=== PATIENT | male | born 1960 | race Two or more races ===

== ENCOUNTER 2017-11-21 08:00 | Day surgery (SDC) | payer OTHER, BC ==
[~2017-11-21 08:00] MED LIST: EPINEPHrine 1 MG/ML 30 ML MDV IV ONE; Lactated Ringers 1,000 ML IV SCH; Lidocaine 1%/Sod Bicarbonate in NS 8.4% 1 ML Syringe IDERM PRN; Sodium Chloride 0.9% 10 ML Syringe FLUSH PRN
[2017-11-21] MEDS ORDERED: Bupivacaine 0.25% 30 ML SDV ONE (08:30)
[2017-11-21] MEDS ORDERED: EPINEPHrine 1 MG/ML SDV ONE (08:43)
[2017-11-21] MEDS ORDERED: Ropivacaine 0.5% 5 MG/ML 30 ML SDV ONE (08:43)
[2017-11-21] MEDS ORDERED: Lidocaine 1% 4 ML ONE ×2 (08:43→09:05)
[2017-11-21] MEDS ORDERED: Propofol 200 MG/20 ML SDV ONE (09:04)
[2017-11-21] MEDS ORDERED: Ketamine 500 mg/10 ML MDV ONE (09:04)
[2017-11-21] MEDS ORDERED: Ondansetron 4 MG/2 ML SDV ONE (09:04)
[2017-11-21] MEDS ORDERED: fentaNYL 100 MCG/2 ML SDV ONE ×2 (09:04→10:38)
[2017-11-21] MEDS ORDERED: Lactated Ringers 1,000 ML ONE (09:04)
[2017-11-21] MEDS ORDERED: ceFAZolin 1 GM Vial ONE (09:04)
[2017-11-21] MEDS ORDERED: Midazolam 1 MG/ML 2 ML SDV ONE (09:05)
--- NOTE | 2017-11-21 09:15 | PCM.PREANE ---
Preanesthetic Assessment - Anesthesia/Transfusion/Family Hx Anesthesia History: Prior Anesthesia Without Reaction Family History of Anesthesia Reaction: No Transfusion History: No Prior Transfusion(s) Intubation History: Unknown - Review of Systems General: No Symptoms Pulmonary: No Symptoms (KUSH with CPAP at night.) Cardiovascular: No Symptoms (History of MS 14 years ago in [place]: questionable per MD/stable echocardiogram noted), Dyspnea on Exertion ("due to being out of shape") Gastrointestinal: No Symptoms Neurological: No Symptoms (chronic back pain) Other: Reports: Anxiety - Physical Assessment NPO Status Date: 11/20/17 NPO Status Time: 22:00 Pulse: 67 O2 Sat by Pulse Oximetry: 94 Respiratory Rate: 16 Blood Pressure: 147/89 Temperature: 36.5 C Vital Signs: Last Vital Signs Temp 36.5 C 11/21/17 08:15 Pulse 67 11/21/17 08:15 Resp 16 11/21/17 08:15 BP 147/89 H 11/21/17 08:15 Pulse Ox 94 L 11/21/17 08:15 Height: 1.63 m Weight: 107.048 kg ASA Class: 3 Mental Status: Alert & Oriented x3 Airway Class: Mallampati = 2 Dentition: Reports: Normal Dentition, Cochran(s), Caries Thyro-Mental Finger Breadths: 3 Mouth Opening Finger Breadths: 3 ROM/Head Extension: Full Lungs: Clear to Auscultation, Normal Respiratory Effort Cardiovascular: Regular Rate, Regular Rhythm, No Murmurs - Lab Values: Laboratory Last Values MRSA (PCR) Negative 11/13/17 13:20 All lab values reviewed and noted and within acceptable ranges to proceed with scheduled procedure. - Imaging/EKG Impressions: EKG: SR rate=64 CXR: negative Echocardiogram: EF=70-75%, Mild aortic regurgitation - Allergies Allergies/Adverse Reactions: Allergies Allergy/AdvReac Type Severity Reaction Status Date / Time No Known Allergies Allergy Verified 11/20/17 16:12 - Anesthesia Plan Pre-Op Medication Ordered: None - Acknowledgements Anesthesia Type Planned: General Anesthesia (Left interscalene block under US guidance for post operative pain control requested by Dr. Riggins.) Pt an Appropriate Candidate for the Planned Anesthesia: Yes Alternatives and Risks of Anesthesia Discussed w Pt/Guardian: Yes Pt/Guardian Understands and Agrees with Anesthesia Plan: Yes PreAnesthesia Questionnaire HEENT History: Reports: Impaired Vision Cardiovascular History: Reports: High Cholesterol, Hypertension Respiratory History: Reports: Sleep Apnea Gastrointestinal History: Reports: GERD Genitourinary History: Reports: None ELECTRICIAN'S ASSISTANT History: Reports: None Musculoskeletal History: Reports: Back Pain, Chronic Other Musculoskeletal History: LEFT ELBOW SURGERY INVOLVING NERVE, carpal tunnel syndrome, left rotator cuff tear Neurological History: Reports: None Psychiatric History: Reports: None Endocrine/Metabolic History: Reports: Obesity/BMI 30+ Hematologic History: Reports: None Immunologic History: Reports: None Oncologic (Cancer) History: Reports: None Dermatologic History: Reports: None - Past Surgical History Head Surgeries/Procedures: Reports: None HEENT Surgical History: Reports: Eye Surgery Cardiovascular Surgical History: Reports: None Respiratory Surgical History: Reports: None GI Surgical History: Reports: Cholecystectomy, Colonoscopy, EGD Female Surgical History: Reports: None Male Surgical History: Reports: None Endocrine Surgical History: Reports: None Neurological Surgical History: Reports: None Musculoskeletal Surgical History: Reports: Shoulder Surgery Oncologic Surgical History: Reports: None Dermatological Surgical History: Reports: None - SUBSTANCE USE Smoking Status *Q: Never Smoker Recreational Drug Use History: No - HOME MEDS Home Medications: Home Meds traMADol [Ultram] 50 mg PO Q6HR PRN 01/16/15 [History] ALPRAZolam [Xanax] 1 mg PO ASDIRECTED PRN 03/25/16 [History] Methocarbamol [Robaxin-750] 750 mg PO BID 03/25/16 [History] Acetaminophen [Tylenol Extra Strength] 1,000 mg PO ASDIRECTED PRN 11/21/17 [ History] Acetaminophen/HYDROcodone [[place] 325-5 MG] 1 - 2 tab PO Q6H PRN #40 tablet 11/21 [Rx] - CURRENT (IN HOUSE) MEDS Current Meds: Current Medications Epinephrine HCl (Adrenalin) 3 mg IV ONETIME ONE Stop: 11/21/17 10:01 Lactated Ringer's (Ringers, Lactated) 1,000 mls @ 125 mls/hr IV ASDIRECTED PUNEET Stop: 11/21/17 23:00 Lidocaine/Sodium Bicarbonate (Buffered Lidocaine 1% In Ns 8.4%) 0.25 ml IDERM ONETIME PRN PRN Reason: Prior to IV Start Stop: 11/21/17 18:00 Sodium Chloride (Saline Flush) 10 ml FLUSH ASDIRECTED PRN PRN Reason: Keep Vein Open Stop: 11/21/17 18:00 Discontinued Medications Bupivacaine HCl (Marcaine 0.25%) Confirm Administered Dose 30 ml .ROUTE .STK- MED ONE Stop: 11/21/17 08:31 Cefazolin Sodium (Ancef) Confirm Administered Dose 2 gm .ROUTE .STK-MED ONE Stop: 11/21/17 09:05 Epinephrine HCl (Adrenalin) 3 mg IV ONETIME ONE Stop: 11/20/17 10:01 Epinephrine HCl (Adrenalin) Confirm Administered Dose 1 mg .ROUTE .STK-MED ONE Stop: 11/21/17 08:44 Fentanyl (Sublimaze) Confirm Administered Dose 100 mcg .ROUTE .STK-MED ONE Stop: 11/21/17 09:05 Lidocaine HCl (Xylocaine-Mpf 1%) Confirm Administered Dose 4 mls @ as directed .ROUTE .STK-MED ONE Stop: 11/21/17 08:44 Lactated Ringer's (Ringers, Lactated) Confirm Administered Dose 1,000 mls @ as directed .ROUTE .STK-MED ONE Stop: 11/21/17 09:05 Lidocaine HCl (Xylocaine-Mpf 1%) Confirm Administered Dose 4 mls @ as directed .ROUTE .STK-MED ONE Stop: 11/21/17 09:06 Ketamine HCl (Ketalar) Confirm Administered Dose 500 mg .ROUTE .STK-MED ONE Stop: 11/21/17 09:05 Midazolam HCl (Versed 1 Mg/Ml) Confirm Administered Dose 2 mg .ROUTE .STK-MED ONE Stop: 11/21/17 09:06 Ondansetron HCl (Zofran) Confirm Administered Dose 4 mg .ROUTE .STK-MED ONE Stop: 11/21/17 09:05 Propofol (Diprivan 20 Ml) Confirm Administered Dose 600 mg .ROUTE .STK-MED ONE Stop: 11/21/17 09:05 Ropivacaine (Naropin 0.5%) Confirm Administered Dose 30 ml .ROUTE .STK-MED ONE Stop: 11/21/17 08:44
[2017-11-21] MEDS ORDERED: Succinylcholine/Normal Saline 100 MG/5 ML Syringe ONE (09:44)
[2017-11-21] MEDS ORDERED: Rocuronium 50 MG/5 ML Vial ONE (09:44)
[2017-11-21] MEDS ORDERED: EPINEPHrine 1 MG/ML 30 ML MDV IV ONE (10:00)
[2017-11-21] MEDS ORDERED: Dexamethasone 4 MG/ML SDV ONE (10:31)
[2017-11-21] MEDS ORDERED: Ketorolac 30 MG/ML SDV ONE (11:15)
[2017-11-21] MEDS ORDERED: diphenhydrAMINE 50 MG/ML SDV IVPUSH PRN (11:18)
[2017-11-21] MEDS ORDERED: Ondansetron 4 MG/2 ML SDV IVPUSH PRN (11:18)
[2017-11-21] MEDS ORDERED: fentaNYL 100 MCG/2 ML SDV IVPUSH PRN (11:18)
[2017-11-21] MEDS ORDERED: Meperidine PF 50 MG/ML Syringe IVPUSH PRN (11:18)
--- NOTE | 2017-11-21 11:56 | PCM.POSTAN ---
POST ANESTHESIA ASSESSMENT - MENTAL STATUS Mental Status: Alert, Confused - VITAL SIGNS Pulse Rate: 80 SaO2: 92 Resp Rate: 26 Blood Pressure: 149/88 Temperature: 36.4 C - RESPIRATORY Respiratory Status: Respiratory Rate WNL, Airway Patent, O2 Saturation Stable, Supplemental Oxygen - CARDIOVASCULAR CV Status: Pulse Rate WNL, Blood Pressure Stable - GASTROINTESTINAL GI Status: No Symptoms - PAIN Pain Score: 0 - POST OP HYDRATION Hydration Status: Adequate & Stable
--- NOTE | 2017-11-21 12:13 | PCM.SN ---
- Free Text/Narrative Note: Anesthesia Note: (Interscalene block note) Date: 10/21/2017 Time Out: 939 Start: 939 Stop: 958 Surgical Procedure: Left Shoulder Video Arthroscopy with Rotator Cuff Repair Diagnosis: Left Shoulder Rotator Cuff Tear Current Procedure: Left interscalene block under US guidance for postoperative pain control requested by Dr. Riggins. Patient chart reviewed, risk/benefits discussed with patient, consent obtained. Patient positioned supine, monitors/alarms on, oxygen placed via nasal cannula at 2 LPM. IV sedation administered: Versed 2mg IV @ 0940 Fentanyl 50 mcg IV @ 0940 Fentanyl 50 mcg IV @ 0944 Left shoulder prepped with chloraprep x1. Sterile drapes placed with aseptic technique. Under US guidance (sterile US sleeve) left subclavian artery visualized along with the left brachial plexus. Plexus followed cephalad up to C6 cricoid level, and area localized with 2mls of 1% lidocaine. 22gauge 2 inch stimiplex needle inserted under US and guided to brachial plexus C5-C6 trunks with 0.44mV with stimulation of biceps noted. Stimulation abolished at 0.2mVs. 1ml of Normal Saline injected with loss of stimulation up to 0.7mA to confirm needle not placed intraneurally. Incremental injection of 5mls with negative aspiration prior to each injection of 0.5% ropivacaine with 1:200,000 epinephrine. Total volume=30mls. See nurses notes for vital signs. Tolerated procedure well. No complications noted.
--- NOTE | 2017-11-21 13:48 | PCM48HPAN ---
Post Anesthesia Note - EVALUATION WITHIN 48HRS OF ANESTHETIC Vital Signs in Normal Range: Yes Patient Participated in Evaluation: Yes Respiratory Function Stable: Yes Airway Patent: Yes Cardiovascular Function Stable: Yes Hydration Status Stable: Yes Pain Control Satisfactory: Yes Nausea and Vomiting Control Satisfactory: Yes Mental Status Recovered: Yes
[2017-11-21 15:21] VITALS: BP 143/77
--- NOTE | 2017-11-23 08:51 | PCM.OPNOTE ---
- General Post-Op/Procedure Note Date of Surgery/Procedure: 11/21/17 Operative Procedure(s): left shoulder video arthroscopy with rotator cuff repair , subacromial decompression and limited debridement Pre Op Diagnosis: left shoulder rotator cuff tear with impingement Post-Op Diagnosis: Same Anesthesia Technique: General ET Tube, Regional Block Primary Surgeon: Jorje Riggins Anesthesia Provider: Millie Walden Embroidery Assistant: Dunia Mike EBL in mLs: 5 Complications: None Condition: Good
--- NOTE | 2017-11-23 09:58 | OR ---
DATE OF OPERATION: 11/21/2017 SURGEON: Jorje Riggins MD OPERATION PERFORMED: Left shoulder video arthroscopy with rotator cuff repair, subacromial decompression, and limited debridement. PREOPERATIVE DIAGNOSIS: Left shoulder rotator cuff tear with impingement. POSTOPERATIVE DIAGNOSIS: Left shoulder rotator cuff tear with impingement. ANESTHESIA: General endotracheal intubation with regional interscalene block. ANESTHESIA PROVIDER: Marine Baker. ASSISTANTS: Dunia Mike PA-C. ESTIMATED BLOOD LOSS: Less than 5 mL. COMPLICATIONS: None. CONDITION: Stable. DESCRIPTION OF PROCEDURE: The patient was identified in the preop holding area, where proper site was marked and identified by the surgeon. The patient was taken back to the operating theater where after adequate anesthesia, the patient was placed in a lazy right lateral decubitus position. A wedge was placed posteriorly. All bony prominences were well padded. The patient was secured to the table. Left upper extremity was then sterilely prepped and draped in the usual sterile fashion. OR time-out was performed. The patient received 2 g IV Ancef. The left upper extremity then had 15 pounds of traction applied. Standard posterior incision was made. Scope trocar was introduced through the glenohumeral joint. At this time, anterior portal was also created with the use of a spinal needle from an outside in technique. At this time, cursory examination showed a significant full-thickness tear of the anterior portion of the supraspinatus; subscapularis tendon was intact. Biceps tendon was intact. There was minor amount of anterior labral fraying. There was no chondromalacia noted and no loose foreign bodies in the axillary recess. At this time, a limited debridement was done of the synovium and attention was turned to the subacromial space. The scope trocar was then placed in the subacromial space and there was noted to be a full-thickness tear of small portion of the anterior portion of the supraspinatus. At this time, a limited debridement was done on the subacromial space. There was noted to be significant fraying of the CA ligament as well. A lateral portal was then created with the use of a spinal needle. A good bony bleeding bed was then created at the old insertional region of the anterior tear for fixation of the rotator cuff. At this time, with the use of a spinal needle, a punch was used for a medial row 4.75 mm Arthrex SwiveLock anchor. Two limbs of FiberTape as well as 2 limbs of FiberWire were then passed through the tear. The 2 limbs of FiberWire were then tied for a medial row repair and all 4 limbs were brought out laterally and a punch was used for another 4.75 mm Arthrex SwiveLock anchor laterally. All 4 limbs of suture were brought out laterally and then were tightened and the SwiveLock was then placed. It was noted to be an adequate watertight repair with catholic of the footprint. At this time, cautery was used to take down part of the CA ligament and acromioplasty as well as subacromial decompression was then completed. At this time, it was brought back to a nice smooth border. Excess saline was drained from the joint, 3-0 nylon simple suture was used for closure of the skin. A sterile soft dressing as well as a pillow sling was applied. The patient tolerated the procedure well, was sent to PACU in stable condition. CHUCHO /[id number]
== END 2017-11-21 14:10 | disposition home or self-care (01) ==
LOC: JD.SDS 08:00
PROVIDERS: ATTEND Orthopaedic Surgery
DX: M75.122 Complete rotator cuff tear or rupture of left shoulder, not specified as traumatic (principal); M75.42 Impingement syndrome of left shoulder; G89.29 Other chronic pain; M54.9 Dorsalgia, unspecified; G47.33 Obstructive sleep apnea (adult) (pediatric); Z99.89 Dependence on other enabling machines and devices; E78.00 Pure hypercholesterolemia, unspecified; E66.9 Obesity, unspecified; Z68.41 Body mass index [BMI] 40.0-44.9, adult; Z79.899 Other long term (current) drug therapy
CPT/HCPCS: 87641; J0171; J0330; J0690; J1100; J1885; J2001; J2250; J2405; J2704; J2795; J3010; J3490; J7120

== ENCOUNTER 2018-09-18 06:37 | Day surgery (SDC) | payer OTHER ==
--- NOTE | 2018-09-17 10:04 | PCM.PREANE ---
Preanesthetic Assessment - Anesthesia/Transfusion/Family Hx Anesthesia History: Prior Anesthesia Without Reaction Family History of Anesthesia Reaction: No Transfusion History: No Prior Transfusion(s) (Patient refuses to receive any blood transfusions.) Intubation History: Unknown - Review of Systems General: No Symptoms Pulmonary: No Symptoms (KUSH with CPAP noted at night), Shortness of Breath Cardiovascular: No Symptoms (History of HTN, History of potential VT 15 years ago in [place], Dr. Carroll questions the validity of this statement.) Gastrointestinal: No Symptoms (History of GERD) Neurological: No Symptoms (Chronic lower back pain noted) Other: Reports: Liver Problems (elevated liver enzymes), Sinus Problem ( seasonal allergies-patient sneezes a lot.), Anxiety - Physical Assessment NPO Status Date: 09/17/18 NPO Status Time: 21:00 Pulse: 63 O2 Sat by Pulse Oximetry: 95 Respiratory Rate: 16 Blood Pressure: 143/66 Temperature: 36.4 C Height: 1.63 m Weight: 107 kg ASA Class: 3 Mental Status: Alert & Oriented x3 Airway Class: Mallampati = 2 Dentition: Reports: Normal Dentition, Missing Tooth/Teeth, Caries Thyro-Mental Finger Breadths: 3 Mouth Opening Finger Breadths: 3 ROM/Head Extension: Full Lungs: Clear to Auscultation, Normal Respiratory Effort Cardiovascular: Regular Rate, Regular Rhythm, No Murmurs - Lab Values: Laboratory Last Values MRSA (PCR) Negative 09/10/18 12:00 All labs reviewed and noted and within acceptable ranges to proceed with scheduled procedure. Elevated liver enzymes noted. - Imaging/EKG Impressions: EKG: SR rate =64 Echocardiogram: EF= 70-75%, mild aortic regurgitation - Allergies Allergies/Adverse Reactions: Allergies Allergy/AdvReac Type Severity Reaction Status Date / Time No Known Allergies Allergy Verified 09/17/18 13:19 - Anesthesia Plan Pre-Op Medication Ordered: None - Acknowledgements Anesthesia Type Planned: General Anesthesia (Left ISB under US guidance for post operative pain control requested by Dr. Riggins.) Pt an Appropriate Candidate for the Planned Anesthesia: Yes Alternatives and Risks of Anesthesia Discussed w Pt/Guardian: Yes Pt/Guardian Understands and Agrees with Anesthesia Plan: Yes PreAnesthesia Questionnaire HEENT History: Reports: Impaired Vision Cardiovascular History: Reports: High Cholesterol, Hypertension Respiratory History: Reports: Sleep Apnea Gastrointestinal History: Reports: GERD Genitourinary History: Reports: None PERFORATOR History: Reports: None Musculoskeletal History: Reports: Back Pain, Chronic Other Musculoskeletal History: LEFT ELBOW SURGERY INVOLVING NERVE, carpal tunnel syndrome, left rotator cuff tear Neurological History: Reports: None Psychiatric History: Reports: None Endocrine/Metabolic History: Reports: Obesity/BMI 30+ Hematologic History: Reports: None Immunologic History: Reports: None Oncologic (Cancer) History: Reports: None Dermatologic History: Reports: None - Past Surgical History Head Surgeries/Procedures: Reports: None HEENT Surgical History: Reports: Eye Surgery Cardiovascular Surgical History: Reports: None Respiratory Surgical History: Reports: None GI Surgical History: Reports: Cholecystectomy, Colonoscopy, EGD Female Surgical History: Reports: None Male Surgical History: Reports: None Endocrine Surgical History: Reports: None Neurological Surgical History: Reports: None Musculoskeletal Surgical History: Reports: Shoulder Surgery Oncologic Surgical History: Reports: None Dermatological Surgical History: Reports: None - HOME MEDS Home Medications: Home Meds traMADol [Ultram] 50 mg PO BID PRN 01/16/15 [History] Methocarbamol [Robaxin-750] 750 mg PO BID PRN 03/25/16 [History] Acetaminophen/HYDROcodone [[place] 325-5 MG] 1 - 2 tab PO Q6H PRN #40 tablet 11/21 [Rx] ALPRAZolam [Alprazolam] 0.5 mg PO BID PRN 09/17/18 [History] - CURRENT (IN HOUSE) MEDS Current Meds: Current Medications Lactated Ringer's (Ringers, Lactated) 1,000 mls @ 125 mls/hr IV ASDIRECTED PUNEET Stop: 09/18/18 23:00 Lidocaine/Sodium Bicarbonate (Buffered Lidocaine 1% In Ns 8.4%) 0.25 ml IDERM ONETIME PRN PRN Reason: Prior to IV Start Stop: 09/18/18 23:00 Sodium Chloride (Saline Flush) 10 ml FLUSH ASDIRECTED PRN PRN Reason: Keep Vein Open Stop: 09/18/18 23:00
[~2018-09-18 06:37] MED LIST changes: +Dexamethasone 4 MG/ML SDV ONE; -EPINEPHrine 1 MG/ML 30 ML MDV IV ONE; +EPINEPHrine 1 MG/ML SDV ONE; +Ketorolac 30 MG/ML SDV ONE; -Lactated Ringers 1,000 ML IV SCH; +Lactated Ringers 1,000 ML ONE; +Lidocaine 1% 4 ML ONE; +Lidocaine 1% 6 ML ONE; -Lidocaine 1%/Sod Bicarbonate in NS 8.4% 1 ML Syringe IDERM PRN; +Midazolam 1 MG/ML 2 ML SDV ONE; +Ondansetron 4 MG/2 ML SDV ONE; +Propofol 200 MG/20 ML SDV ONE; +Rocuronium 50 MG/5 ML Vial ONE; +Ropivacaine 0.5% 5 MG/ML 30 ML SDV ONE; -Sodium Chloride 0.9% 10 ML Syringe FLUSH PRN; +Succinylcholine/Normal Saline 100 MG/5 ML Syringe ONE; +ceFAZolin 1 GM Vial ONE; +fentaNYL 250 MCG/5 ML SDV ONE
[2018-09-18] MEDS ORDERED: Lactated Ringers 1,000 ML IV SCH (07:00)
[2018-09-18] MEDS ORDERED: Sodium Chloride 0.9% 10 ML Syringe FLUSH PRN (07:00)
[2018-09-18] MEDS ORDERED: Lidocaine 1%/Sod Bicarbonate in NS 8.4% 1 ML Syringe IDERM PRN (07:00)
--- NOTE | 2018-09-18 07:39 | PCM.SN ---
- Free Text/Narrative Note: Anesthesia Note: (Left Interscalene Block Note) Date: 09/18/2018 Time Out: 709 Start: 709 Stop: 726 Surgical Procedure: Left Shoulder open subscapularis tendon Diagnosis Left Partial tear of left subscapularis tendon Current Procedure: Left interscalene block under US guidance for postoperative pain control requested by Dr. Riggins. Patient chart reviewed, risk/benefits discussed with patient, consent obtained. Patient positioned supine, monitors/alarms on, oxygen placed via nasal cannula at 2 LPM. IV sedation administered: Versed 2mg IV, Fentanyl 50mcg IV given in prior to block placement. Left shoulder prepped with two chloropreps. Sterile drapes placed with aseptic technique noted. Under US guidance, left subclavian artery visualized along with the left brachial plexus. Plexus followed up to C6 cricoid level, and area localized with 2mls of 1% lidocaine. 22gauge 2 inch stimiplex needle advanced under US with 0.6mV with stimulation of biceps noted. Good stimulation noted with decreased voltage and absent at 0.2mVs. 1ml of Normal Saline injected with loss of stimulation noted to confirm needle not placed intraneurally. Incremental dosing of 5mls with negative aspiration noted prior to each injection of 0.5% ropivacaine with 1:200,000 epinephrine. Total volume=30mls. Please refer to nurses noted for vital signs. Kristin Schneider CRNA
[2018-09-18] MEDS ORDERED: diphenhydrAMINE 50 MG/ML SDV IVPUSH PRN (08:17)
[2018-09-18] MEDS ORDERED: Midazolam 1 MG/ML 2 ML SDV IVPUSH PRN (08:17)
[2018-09-18] MEDS ORDERED: Ondansetron 4 MG/2 ML SDV IVPUSH PRN (08:17)
[2018-09-18] MEDS ORDERED: ePHEDrine 50 MG/ML SDV IVPUSH PRN (08:17)
[2018-09-18] MEDS ORDERED: Albuterol 0.083% 2.5 MG/3 ML Neb Soln NEB PRN (08:17)
[2018-09-18] MEDS ORDERED: HYDROmorphone 0.5 MG/0.5 ML Syringe IVPUSH PRN (08:17)
[2018-09-18] MEDS ORDERED: fentaNYL 100 MCG/2 ML SDV IVPUSH PRN (08:17)
[2018-09-18] MEDS ORDERED: Phenylephrine 1 MG in Sodium Chloride 0.9% 10 ML IV PRN (08:30)
[2018-09-18] MEDS ORDERED: Glycopyrrolate 0.2 MG/ML SDV ONE (08:58)
[2018-09-18] MEDS ORDERED: Neostigmine Methylsulfate 1 MG/ML 5 ML Syringe ONE (08:58)
--- NOTE | 2018-09-18 09:48 | PCM.POSTAN ---
POST ANESTHESIA ASSESSMENT - MENTAL STATUS Mental Status: Alert - VITAL SIGNS Pulse Rate: 83 SaO2: 93 (2LPM nasal cannula) Resp Rate: 10 Blood Pressure: 116/97 Temperature: 36.4 C - RESPIRATORY Respiratory Status: Respiratory Rate WNL, Airway Patent, O2 Saturation Stable, Supplemental Oxygen - CARDIOVASCULAR CV Status: Pulse Rate WNL, Blood Pressure Stable - GASTROINTESTINAL GI Status: No Symptoms - POST OP HYDRATION Hydration Status: Adequate & Stable
[2018-09-18] MEDS ORDERED: Acetaminophen/HYDROcodone 325-5 MG Tab PO PRN (10:51)
[2018-09-18 14:09] VITALS: BP 116/82
--- NOTE | 2018-09-23 09:38 | PCM.OPNOTE ---
- General Post-Op/Procedure Note Date of Surgery/Procedure: 09/18/18 Operative Procedure(s): open left shoulder subscapularis repair with open biceps tenodesis Pre Op Diagnosis: left shoulder subscapularis tear with biceps tendinitis Post-Op Diagnosis: Same Anesthesia Technique: General ET Tube, Regional Block Primary Surgeon: Jorje Riggins Anesthesia Provider: Kristin Schneider Pst Specialist: Dunia Mike EBL in mLs: 10 Complications: None Condition: Good
--- NOTE | 2018-09-23 12:54 | OR ---
DATE OF OPERATION: 09/18/2018 SURGEON: Jorje Riggins MD OPERATION PERFORMED: Open left shoulder subscapularis repair with open biceps tenodesis. PREOPERATIVE DIAGNOSIS: Left shoulder subscapularis tear with biceps tendinitis. POSTOPERATIVE DIAGNOSIS: Left shoulder subscapularis tear with biceps tendinitis. ANESTHESIA: General endotracheal intubation with regional interscalene block. ANESTHESIOLOGIST: Kristin Schneider CRNA. ESTIMATED BLOOD LOSS: 10 mL. COMPLICATIONS: None. CONDITION: Stable. DESCRIPTION OF PROCEDURE: Patient was identified in the preop holding area. Proper site was marked and identified by the surgeon. The patient was taken back to the operating theater where after adequate anesthesia, the patient was placed supine on a flat top table. The left upper extremity was then sterilely prepped and draped in the usual sterile fashion. OR time-out was performed. The patient received 2 g of IV Ancef. At this time, standard deltopectoral incision was made. This was taken down to the clavipectoral fascia. The clavipectoral fascia was then incised. The conjoined tendon was retracted medially and the deltoid was retracted laterally. At this time, the bicipital groove was identified. There was noted to be significant tendinitis as well as swelling in the bicipital groove. This was then opened and the biceps was noted to have a large amount of fluid with partial tearing. At this time, a 3.2 mm SwiveLock anchor was utilized to do a biceps tenodesis in the groove of the biceps after tenotomy was performed. After this was completed, attention was turned to the subscapularis tendon. The upper third of the subscapularis tendon was noted to be torn at this time, I did take down the upper half of the subscapularis tendon. One 4.75 mm Arthrex SwiveLock anchor was placed medially with the arm in external rotation. Two limbs of FiberWire as well as 2 limbs of FiberTape were then passed with self pass through the subscapularis tendon. Another 4.75 mm Arthrex SwiveLock anchor was then placed laterally just near the bicipital groove and on the lesser tuberosity. The medial row from the first anchor from the FiberWire was then tied and then all 4 limbs of the FiberWire and FiberTape were then brought out laterally and Arthrex SwiveLock anchor was placed after these were tensioned. He was noted to have adequate watertight repair of the subscapularis tendon over the lesser tuberosity. He was brought through range of motion, found to have adequate repair. At this time, saline was irrigated through the wound. The deltopectoral interval was tagged with #2 FiberWire. 2-0 Vicryl was used subcutaneously and Prineo was used for the skin. The patient was placed in a sterile soft dressing and a pillow sling and sent to PACU in stable condition. MMODAL /[id number]
== END 2018-09-18 12:30 | disposition home or self-care (01) ==
LOC: JD.SDS 06:37
PROVIDERS: ATTEND Orthopaedic Surgery
DX: M75.22 Bicipital tendinitis, left shoulder (principal); M75.112 Incomplete rotator cuff tear or rupture of left shoulder, not specified as traumatic; M75.42 Impingement syndrome of left shoulder; I10 Essential (primary) hypertension; I25.2 Old myocardial infarction; F41.9 Anxiety disorder, unspecified; G47.33 Obstructive sleep apnea (adult) (pediatric); G89.18 Other acute postprocedural pain; Z99.89 Dependence on other enabling machines and devices; Z79.899 Other long term (current) drug therapy
CPT/HCPCS: 23412; 23430; 24310; 64415; 87641; A9270; J0171; J0330; J0690; J1100; J1885; J2001; J2250; J2405; J2704; J2710; J2795; J3010; J3490; J7120; 01610